=== PATIENT | female | born 1985 | race Caucasian/White ===

== ENCOUNTER 2017-02-16 22:18 | Observation (INO) | payer BC, OTHER ==
[2017-02-16] MEDS ORDERED: Sodium Chloride 0.9% 2.5 ML Syringe FLUSH PRN (23:43)
[2017-02-16] MEDS ORDERED: Sodium Chloride 0.9% 1,000 ML IV ONE (23:43)
[2017-02-16] MEDS ORDERED: Ketorolac 30 MG/ML SDV IVPUSH ONE (23:47)
[2017-02-16] MEDS: Sodium Chloride 0.9% 10 ML Syringe FLUSH PRN (23:53)
--- NOTE | 2017-02-16 23:57 | EDM.PDOC ---
ED HPI GI/ABDOMINAL - General Chief Complaint: Abdominal Pain Stated Complaint: PT HAS STOMACH PAINS Time Seen by Provider: 02/16/17 22:35 Source of Information: Reports: Patient History Limitations: Reports: No limitations - History of Present Illness INITIAL COMMENTS - FREE TEXT/NARRATIVE: HISTORY AND PHYSICAL: History of present illness: [31-year-old female with no prior abdominal history does not believe she is now complaining of upper abdominal pain radiating to her back since about 2 PM] this was feeling fine this morning about 2 hours after eating lunch she had onset of intermittent upper moderate to severe abdominal pain never fully resolved. Crampy sometimes. No fevers chills sweats or shaking chills. Pain is not worse with movement. Patient had no vomiting or diarrhea. No prior diagnoses of any abdominal abnormality. Reports normal bowel and bladder habits Review of systems: As per history of present illness and below otherwise all systems reviewed and negative. Past medical history: As per history of present illness and as reviewed below otherwise noncontributory. Surgical history: As per history of present illness and as reviewed below otherwise noncontributory. Social history: No reported history of drug or alcohol abuse. Family history: As per history of present illness and as reviewed below otherwise noncontributory. Physical exam: HEENT: Atraumatic, normocephalic, pupils reactive, negative for conjunctival pallor or scleral icterus, mucous membranes moist, throat clear, neck supple, nontender, trachea midline. Lungs: Clear to auscultation, breath sounds equal bilaterally, chest nontender. Heart: S1S2, regular, negative for clicks, rubs, or JVD. Abdomen: Soft, nondistended, minimal upper abdominal tenderness bilaterally no guarding or rebound. Negative for masses or hepatosplenomegaly. Negative for costovertebral tenderness. Pelvis: Stable nontender. Genitourinary: Deferred. Rectal: Deferred. Extremities: Atraumatic, negative for cords or calf pain. Neurovascular unremarkable. Neuro: Awake, alert, oriented. Motor and sensory unremarkable throughout. Exam nonfocal. Diagnostics: [] Therapeutics: [] Impression: [] Plan: [Signs and symptoms consistent with nonspecific abdominal pain possibly secondary to gastritis. Pain is vaguely located in the upper abdomen] essentially nonfocal. no lower abdominal tenderness. HCG negative. Labs and urine pending as well as CT of the abdomen and pelvis. Toradol given. CT with cholelithiasis in patient with significantly elevated white blood cell count. Ultrasound ordered for full characterization of gallbladder disease shows pericholecystic fluid and a gallstone the gallbladder neck findings concerning for acute cholecystitis. By post 14.93. She has persistent pain on reexam. Case discussed with Dr. Zhen Jimenez surgery blood donor unit assistant who is aware of history and findings and we'll provide surgical consultation for patient and admit to his service. Definitive disposition and diagnosis as appropriate pending reevaluation and review of above. - Related Data Allergies/ADRs: Allergies Allergy/AdvReac Type Severity Reaction Status Date / Time No Known Allergies Allergy Verified 02/16/17 22:28 Home Meds: Home Meds . [No Known Home Meds] 02/16/17 [History] Past Medical History HEENT History: Reports: None Cardiovascular History: Reports: Hypertension Respiratory History: Reports: None Gastrointestinal History: Reports: None Genitourinary History: Reports: None Musculoskeletal History: Reports: None Neurological History: Reports: None Psychiatric History: Reports: None Endocrine/Metabolic History: Reports: None Oncologic (Cancer) History: Reports: None - Infectious Disease History Infectious Disease History: Reports: None - Past Surgical History Female Surgical History: Reports: None Social & Family History - Family History Family Medical History: Noncontributory - Tobacco Use Smoking Status *Q: Never Smoker - Recreational Drug Use Recreational Drug Use: No ED ROS GENERAL - Review of Systems Review Of Systems: See Below (History of present illness) ED EXAM, GI/ABD - Physical Exam Exam: See Below (History of present illness) Course - Vital Signs Last Recorded V/S: Last Vital Signs Temp 36.9 C 02/17/17 02:56 Pulse 84 02/17/17 02:56 Resp 17 02/17/17 02:56 BP 161/95 H 02/17/17 02:56 Pulse Ox 94 L 02/17/17 02:56 - Orders/Labs/Meds Orders: Active Orders 24 hr Category Date Time Status Peripheral IV Care [RC] . DIRECTED Care 02/16/17 23:44 Active Abdomen Ltd [US] Stat Exams 02/17/17 02:29 Stop Req Abdomen Ltd [US] Stat Exams 02/17/17 02:29 Stop Req Abdomen Pelvis w wo Cont [CT] Stat Exams 02/16/17 23:45 Taken Gallbladder [Abdomen Ltd] [US] Stat Exams 02/17/17 02:39 Taken Sodium Chloride 0.9% [Saline Flush] Med 02/16/17 23:43 Active 10 ml FLUSH ASDIRECTED PRN Sodium Chloride 0.9% [Saline Flush] Med 02/16/17 23:43 Active 2.5 ml FLUSH ASDIRECTED PRN Peripheral IV Insertion Adult [OM.PC] Stat Oth 02/16/17 23:44 Ordered Medication Orders Sodium Chloride (Saline Flush) 10 ml FLUSH ASDIRECTED PRN PRN Reason: Keep Vein Open Last Admin: 02/16/17 23:53 Dose: 10 ml Sodium Chloride (Saline Flush) 2.5 ml FLUSH ASDIRECTED PRN PRN Reason: Keep Vein Open Last Admin: 02/16/17 23:54 Dose: 2.5 ml Labs: Laboratory Tests 02/16/17 02/16/17 02/16/17 Range/Units 22:35 22:35 23:58 WBC 14.93 H (4.0-11.0) K/uL RBC 5.17 (4.30-5.90) M/uL Hgb 14.0 (12.0-16.0) g/dL Hct 43.1 (36.0-46.0) % MCV 83.4 (80.0-98.0) fL MCH 27.1 (27.0-32.0) pg MCHC 32.5 (31.0-37.0) g/dL RDW Std Deviation 41.9 (28.0-62.0) fl RDW Coeff of Stephan 14 (11.0-15.0) % Plt Count 301 (150-400) K/uL MPV 10.40 (7.40-12.00) fL Neut % (Auto) 82.4 H (48.0-80.0) % Lymph % (Auto) 11.7 L (16.0-40.0) % Vernon % (Auto) 4.6 (0.0-15.0) % Eos % (Auto) 1.1 (0.0-7.0) % Baso % (Auto) 0.2 (0.0-1.5) % Neut # (Auto) 12.3 H (1.4-5.7) K/uL Lymph # (Auto) 1.8 (0.6-2.4) K/uL Vernon # (Auto) 0.7 (0.0-0.8) K/uL Eos # (Auto) 0.2 (0.0-0.7) K/uL Baso # (Auto) 0.0 (0.0-0.1) K/uL Nucleated RBC % 0.0 /100WBC Nucleated RBCs # 0 K/uL Sodium (136-146) mmol/L Potassium (3.5-5.1) mmol/L Chloride (98-110) mmol/L Carbon Dioxide (21-31) mmol/L BUN (6.0-23.0) mg/dL Creatinine (0.6-1.5) mg/dL Est Cr Clr Drug Dosing mL/min Estimated GFR (MDRD) ml/min Glucose (60-110) mg/dL Calcium (8.8-10.8) mg/dL Total Bilirubin (0.1-1.5) mg/dL AST (5-40) IU/L ALT (8-54) IU/L Alkaline Phosphatase (40-150) Total Protein (6.0-8.0) g/dL Albumin (3.5-5.0) g/dL Globulin (2.0-3.5) g/dL Albumin/Globulin Ratio (1.3-2.8) Lipase (7-80) U/L Urine Color YELLOW Urine Appearance CLEAR Urine pH 6.0 (5.0-8.0) Ur Specific [place] 1.025 (1.001-1.035) Urine Protein TRACE (NEGATIVE) mg/dL Urine Glucose (UA) NEGATIVE (NEGATIVE) mg/dL Urine Ketones NEGATIVE (NEGATIVE) mg/dL Urine Occult Blood MODERATE (NEGATIVE) Urine Nitrite NEGATIVE (NEGATIVE) Urine Bilirubin NEGATIVE (NEGATIVE) Urine Urobilinogen 0.2 (<2.0) EU/dL Ur Leukocyte Esterase NEGATIVE (NEGATIVE) Urine RBC 0-2 (0-2/HPF) Urine WBC 4-6 (0-5/HPF) Ur Epithelial Cells FEW (NONE-FEW) Urine Bacteria FEW (NEGATIVE) Urine HCG, Qual NEGATIVE (NEGATIVE) 02/16/17 Range/Units 23:58 WBC (4.0-11.0) K/uL RBC (4.30-5.90) M/uL Hgb (12.0-16.0) g/dL Hct (36.0-46.0) % MCV (80.0-98.0) fL MCH (27.0-32.0) pg MCHC (31.0-37.0) g/dL RDW Std Deviation (28.0-62.0) fl RDW Coeff of Stephan (11.0-15.0) % Plt Count (150-400) K/uL MPV (7.40-12.00) fL Neut % (Auto) (48.0-80.0) % Lymph % (Auto) (16.0-40.0) % Vernon % (Auto) (0.0-15.0) % Eos % (Auto) (0.0-7.0) % Baso % (Auto) (0.0-1.5) % Neut # (Auto) (1.4-5.7) K/uL Lymph # (Auto) (0.6-2.4) K/uL Vernon # (Auto) (0.0-0.8) K/uL Eos # (Auto) (0.0-0.7) K/uL Baso # (Auto) (0.0-0.1) K/uL Nucleated RBC % /100WBC Nucleated RBCs # K/uL Sodium 138 (136-146) mmol/L Potassium 3.8 (3.5-5.1) mmol/L Chloride 105 (98-110) mmol/L Carbon Dioxide 21 (21-31) mmol/L BUN 10 (6.0-23.0) mg/dL Creatinine 0.8 (0.6-1.5) mg/dL Est Cr Clr Drug Dosing 82.74 mL/min Estimated GFR (MDRD) > 60.0 ml/min Glucose 109 (60-110) mg/dL Calcium 8.9 (8.8-10.8) mg/dL Total Bilirubin 0.4 (0.1-1.5) mg/dL AST 14 (5-40) IU/L ALT 20 (8-54) IU/L Alkaline Phosphatase 72 (40-150) Total Protein 7.8 (6.0-8.0) g/dL Albumin 4.1 (3.5-5.0) g/dL Globulin 3.7 H (2.0-3.5) g/dL Albumin/Globulin Ratio 1.1 L (1.3-2.8) Lipase 17 (7-80) U/L Urine Color Urine Appearance Urine pH (5.0-8.0) Ur Specific [place] (1.001-1.035) Urine Protein (NEGATIVE) mg/dL Urine Glucose (UA) (NEGATIVE) mg/dL Urine Ketones (NEGATIVE) mg/dL Urine Occult Blood (NEGATIVE) Urine Nitrite (NEGATIVE) Urine Bilirubin (NEGATIVE) Urine Urobilinogen (<2.0) EU/dL Ur Leukocyte Esterase (NEGATIVE) Urine RBC (0-2/HPF) Urine WBC (0-5/HPF) Ur Epithelial Cells (NONE-FEW) Urine Bacteria (NEGATIVE) Urine HCG, Qual (NEGATIVE) Meds: Medications Generic Name Dose Route Start Last Admin Trade Name Freq PRN Reason Stop Dose Admin Sodium Chloride 10 ml 02/16/17 23:43 02/16/17 23:53 Saline Flush FLUSH 10 ml ASDIRECTED PRN Administration Keep Vein Open Sodium Chloride 2.5 ml 02/16/17 23:43 02/16/17 23:54 Saline Flush FLUSH 2.5 ml ASDIRECTED PRN Administration Keep Vein Open Discontinued Medications Generic Name Dose Route Start Last Admin Trade Name Freq PRN Reason Stop Dose Admin Hydromorphone HCl 0.5 mg 02/17/17 04:29 Dilaudid IVPUSH 02/17/17 04:30 ONETIME ONE Sodium Chloride 1,000 mls @ 999 mls/hr 02/16/17 23:43 02/16/17 23:54 Normal Saline IV 02/17/17 00:43 999 mls/hr .Bolus ONE Administration Iopamidol 100 ml 02/17/17 00:46 02/17/17 01:21 Isovue-370 (76%) IVPUSH 02/17/17 00:47 100 ml ONETIME STA Administration Ketorolac Tromethamine 30 mg 02/16/17 23:47 02/16/17 23:54 Toradol IVPUSH 02/16/17 23:48 30 mg ONETIME ONE Administration Departure - Departure Time of Disposition: 04:31 Disposition: Refer to Observation Condition: fair Clinical Impression: Cholecystitis, Cholelithiasis, Leukocytosis, Tachycardia Forms: ED Department Discharge - My Orders Last 24 Hours: My Active Orders 02/16/17 23:43 Sodium Chloride 0.9% [Saline Flush] 10 ml FLUSH ASDIRECTED PRN Sodium Chloride 0.9% [Saline Flush] 2.5 ml FLUSH ASDIRECTED PRN 02/16/17 23:44 Peripheral IV Care [RC] . DIRECTED Peripheral IV Insertion Adult [OM.PC] Stat 02/16/17 23:45 Abdomen Pelvis w wo Cont [CT] Stat 02/17/17 02:29 Abdomen Ltd [US] Stat Abdomen Ltd [US] Stat 02/17/17 02:39 Gallbladder [Abdomen Ltd] [US] Stat - Assessment/Plan Last 24 Hours: My Active Orders 02/16/17 23:43 Sodium Chloride 0.9% [Saline Flush] 10 ml FLUSH ASDIRECTED PRN Sodium Chloride 0.9% [Saline Flush] 2.5 ml FLUSH ASDIRECTED PRN 02/16/17 23:44 Peripheral IV Care [RC] . DIRECTED Peripheral IV Insertion Adult [OM.PC] Stat 02/16/17 23:45 Abdomen Pelvis w wo Cont [CT] Stat 02/17/17 02:29 Abdomen Ltd [US] Stat Abdomen Ltd [US] Stat 02/17/17 02:39 Gallbladder [Abdomen Ltd] [US] Stat
[2017-02-17 00:29] LABS: CHLORIDE,CL 105 mmol/L (98-110); SODIUM,NA 138 mmol/L (136-146)
[2017-02-17] MEDS ORDERED: Iopamidol 755 Mg/ML 100 ML Bottle IVPUSH STA (00:46)
[2017-02-17] MEDS ORDERED: HYDROmorphone 1 MG/ML Syringe IVPUSH ONE (04:29)
[2017-02-17] MEDS: Sodium Chloride 0.9% 10 ML Syringe FLUSH PRN (04:38)
[2017-02-17] MEDS ORDERED: Levofloxacin/Dextrose 5%-Water 750 MG in Premix Bag 1 BAG IV ONE (04:41)
[2017-02-17] MEDS ORDERED: Sodium Chloride 0.9% 1,000 ML IV ONE ×2 (04:41→04:45)
[2017-02-17] MEDS ORDERED: Morphine 2 MG/ML Syringe IVPUSH PRN (08:27)
[2017-02-17] MEDS: Lactated Ringers 1,000 ML IV SCH ×2 (08:31→16:32)
--- NOTE | 2017-02-17 09:38 | PCM.CONS ---
H&P History of Present Illness - General Date of Service: 02/17/17 Admit Problem/Dx: Admission Diagnosis/Problem Admission Diagnosis/Problem Acute cholecystitis Source of Information: Patient History Limitations: Reports: No limitations - History of Present Illness Initial Comments - Free Text/Narative: This 31 year old female with pmh of morbid obesity and borderline HTN presented to the ED today with complaints of abdominal pain. She was admitted under Dr. Wyatt for acute cholecystitis. Dr. Wyatt consulted Hospitalist service for hypertension, She denies any chest pain, SOB or palpitations. She reports she has been told she has elevated BP, but doesn't know the numbers and has never been started on any medications. No history of dyslipidemia or diabetes. epigastric/lower back Pain Score (Numeric/FACES): 2 - Related Data Allergies/Adverse Reactions: Allergies Allergy/AdvReac Type Severity Reaction Status Date / Time No Known Allergies Allergy Verified 02/16/17 22:28 Home Medications: Home Meds . [No Known Home Meds] 02/16/17 [History] Past Medical History HEENT History: Reports: None Cardiovascular History: Reports: Hypertension. Denies: Blood clots/VTE/DVT, Heart Failure, High cholesterol, [place] Respiratory History: Reports: None. Denies: Asthma, COPD, PE Gastrointestinal History: Reports: None. Denies: GERD, GI bleed Genitourinary History: Reports: None. Denies: Acute renal failure, Chronic renal insuffiency Musculoskeletal History: Reports: None Neurological History: Reports: None. Denies: CVA, TIA Psychiatric History: Reports: None. Denies: Anxiety, Depression Endocrine/Metabolic History: Reports: Obesity/BMI 30+. Denies: Diabetes, type II, Hypothyroidism Hematologic History: Reports: None Immunologic History: Reports: None Oncologic (Cancer) History: Reports: None Dermatologic History: Reports: None - Infectious Disease History Infectious Disease History: Reports: None - Past Surgical History Head Surgeries/Procedures: Reports: None Female Surgical History: Reports: None Social & Family History - Family History Family Medical History: Noncontributory - Tobacco Use Smoking Status *Q: Never Smoker Second Hand Smoke Exposure: Yes - Caffeine Use Caffeine Use: Reports: Soda - Recreational Drug Use Recreational Drug Use: No H&P Review of Systems - Review of Systems: Review Of Systems: See Below General: Reports: no symptoms. Denies: fever, chills, malaise HEENT: Reports: no symptoms Pulmonary: Reports: No Symptoms. Denies: Shortness of Breath, Cough, Sputum Cardiovascular: Reports: blood pressure problem. Denies: chest pain, palpitations, edema Gastrointestinal: Reports: Abdominal pain, Distension, Nausea. Denies: Black stool, Bloody stool Genitourinary: Reports: no symptoms. Denies: dysuria, frequency, burning Musculoskeletal: Reports: no symptoms Skin: Reports: no symptoms Psychiatric: Reports: no symptoms Neurological: Reports: No Symptoms Hematologic/Lymphatic: Reports: no symptoms Immunologic: Reports: no symptoms Exam - Exam Exam: See Below - Vital Signs Vital Signs: Last Vital Signs Temp 98.5 F 02/17/17 08:00 Pulse 82 02/17/17 08:00 Resp 16 02/17/17 08:00 BP 172/94 H 02/17/17 08:00 Pulse Ox 94 L 02/17/17 08:00 Weight: 139.7 kg - Exam General: alert, oriented, cooperative HEENT: PERRLA, Hearing intact, Mucosa moist & pink, Nares patent, Normal nasal septum, Posterior pharynx clear, Conjunctiva clear, EOMI, EACs clear, TMs clear Neck: supple, trachea midline, 2 Lungs: Clear to auscultation, Normal respiratory effort Cardiovascular: regular rate, regular rhythm Abdomen: normal bowel sounds, soft, tenderness (RUQ), other (very obese abdomen) Extremities: normal inspection, normal pulses. No: increased warmth Neuro Extensive - Mental Status: alert, oriented x3, normal mood/affect, normal cognition Neuro Extensive - Motor, Sensory, Reflexes: CN II-XII intact, normal gait, normal reflexes Psychiatric: alert, normal affect, normal mood - Patient Data Result Diagrams: 02/16/17 23:58 02/16/17 23:58 Consult PN Assessment/Plan (1) Hypertension SNOMED Code(s): 72392344 Code(s): I10 - ESSENTIAL (PRIMARY) HYPERTENSION Current Visit: Yes (2) Morbid obesity with BMI of 50.0-59.9, adult SNOMED Code(s): 156995049 Code(s): E66.01 - MORBID (SEVERE) OBESITY DUE TO EXCESS CALORIES; Z68.43 - BODY MASS INDEX (BMI) 50-59.9 , ADULT Current Visit: Yes Problem List Initiated/Reviewed/Updated: Yes Plan: This 31 year old female admitted with cholecystitis, Hospitalist service consulted for hypertension 1. Hypertension: asymptomatic, pain well controlled, during interview pain 1-. BP 160-170/90-100. Will start Lisinopril 20 mg and monitor. Will arrange follow up with PCP, Dr. Cedeño for follow up care for HTN. Encouraged her strongly to reduce weight and improve to a healthier lifestyle.
[2017-02-17] MEDS ORDERED: Lisinopril 10 MG Tab PO SCH (10:00)
--- NOTE | 2017-02-17 10:35 | CT ---
EXAM DATE: 02/17/17 PATIENT'S AGE: 31 Patient: ELVER ERVIN Facility: [place], [place] Site . Site : 1985 Study: CT Abdomen/Pelvis W/ and W/O Cont [id number]/6/[id number] 1:35:53 AM Ordering Physician: Doctor Ford Final Report: INDICATION: Right upper quadrant pain and squeezing sensation, back pain TECHNIQUE: CT abdomen and pelvis acquired without and with IV contrast. COMPARISON: None FINDINGS: Lower chest: 0.5 centimeter subpleural nodule right lower lobe. Liver: Unremarkable. Spleen: Unremarkable. Pancreas: Unremarkable. Gallbladder and bile ducts: Cholelithiasis. Adrenal glands: Unremarkable. Kidneys: Unremarkable. GI tract: Unremarkable. Vascular structures: Unremarkable. Lymph nodes: Unremarkable. Miscellaneous: Unremarkable. No free air or significant free fluid. Pelvic Organs: Unremarkable. Bones: Unremarkable for age. IMPRESSION: 1. Cholelithiasis. Right upper quadrant ultrasound may be useful for further evaluation if clinically indicated. 2. Right lower lobe pulmonary nodule. This is likely postinflammatory in a patient of this age. Comparison with any prior CT would be useful. Consider a followup chest CT scan 6 months to evaluate for any interval change. Dictated by Flavia Kumar MD @ Feb 17 2017 1:45AM (Electronic Signature) Report Signed by Proxy and Original Signed Document filed in the Medical Record. [facility]
--- NOTE | 2017-02-17 10:36 | US ---
EXAM DATE: 02/17/17 PATIENT'S AGE: 31 Patient: ELVER ERVIN Facility: [place], [place] Site . Site : 1985 Study: US Abdomen [id number]/6/2017 3:44:06 AM Ordering Physician: Chris Aquino Final Report: INDICATION: Right upper quadrant pain, leukocytosis TECHNIQUE: Ultrasound abdomen limited. Sonographic images of the right upper quadrant were obtained using bynum-scale and color Doppler images. COMPARISON: CT abdomen pelvis February 17, 2017 FINDINGS: Liver: Normal in size and echotexture. No masses. No intrahepatic biliary dilatation. Gallbladder: Sonographic Yuan sign is positive. There appears to be an immobile gallstone within the gallbladder neck. There is gallbladder sludge. Small amount of pericholecystic fluid. Common bile duct: 3 mm. Pancreas: Normal. Right kidney: 11.6 x 4.8 by 5.8 cm. Normal echotexture and cortex. No masses, stones, or hydronephrosis. Vasculature: Proximal abdominal aorta and IVC are normal. IMPRESSION: Findings are concerning for acute cholecystitis with a mobile gallstone within the gallbladder neck and pericholecystic fluid. Dictated by Flavia Kumar MD @ Feb 17 2017 4:06AM (Electronic Signature) Report Signed by Proxy and Original Signed Document filed in the Medical Record. [facility]
--- NOTE | 2017-02-17 13:37 | HP ---
DATE OF : 1985 PRIMARY CARE PHYSICIAN: Roland PCP ADMISSION DIAGNOSIS: Acute and chronic cholecystitis. HISTORY OF PRESENT ILLNESS: The patient is a morbidly obese, 31-year-old lady and complained over a 24-hour history of acute onset of epigastric pain and radiated to the back and looks like somebody has stabbed her from the back to the front. Denied jaundice, denied dark urine, denied white stool, and admission workup included blood work and ultrasound and abdominal CT. Official report is not available at the time of dictation. There is pericholecystic fluid and gallstones and with elevated white count of 14.5. The patient was admitted for further management. The patient remarked that she is known to have gallstones for about 4 to 5 years, and 4 years ago, similar thing happened, and she was treated symptomatically. During the years, on and off, she has some pain, but this time, it is getting worse. PAST MEDICAL HISTORY: Significant for no diabetic, [place], CVA. The patient is known to have hypertension. PAST SURGICAL HISTORY: None. ALLERGIES: Please refer to nursing note for details. MEDICATION: Please refer to nursing note for details. FAMILY HISTORY: Noncontributory. REVIEW OF SYSTEMS: Same as history of present illness. PHYSICAL EXAMINATION: GENERAL: A very pleasant, nice, young lady, younger than stated age, in no acute distress. Very poor dentition, many losing teeth. HEENT: Normocephalic and atraumatic. Sclerae anicteric. LUNGS: Clear to auscultation. HEART: Regular rate and rhythm. ABDOMEN: Protruding, obese, nontender, absolutely no pain. No rebound, no surgical scar, no hernia. VITAL SIGN: Blood pressure 215/120 on admission. The patient's BMI is 54, weight 290, 5 feet tall, and makes a BMI of 54. LABORATORY DATA: Ultrasound and CAT scan as the report dictated above. Total bilirubin is 0.5. ALT and AST and amylase and lipase are within normal limits. IMPRESSION: Chronic and acute cholecystitis. The patient denied jaundice, dark urine, or white stool. An ultrasound of common bile duct about 3 mm. No signs or symptoms of the common bile duct stone at the time of dictation, and pain has completely resolved, and the patient's BMI of 54 is prohibitory to have laparoscopic surgery in this hospital, which simply do not have the equipment. Situation has been explained to the patient. The patient understands, and we will continue to treat with antibiotic and cool down the gallbladder, and it looks like the patient responds well to medical treatment, and the patient will then need to seek medical attention at a tertiary care center, where they are probably more equipped to handle the patient's body habitus, and without equipment, and if the patient needs laparoscopic surgery, we may have to convert to open, and that is not to the best interest of the patient. We will continue to treat with antibiotic and follow serial abdominal exam as well as laboratory workup. Thank you for your kind referral. CADEN IVY /[id number]
[2017-02-17 16:58] VITALS: BP 126/73
[2017-02-18] MEDS ORDERED: Levofloxacin/Dextrose 5%-Water 750 MG in Premix Bag 1 BAG IV SCH (05:00)
[2017-02-18] MEDS ORDERED: Levofloxacin 500 MG Tab PO SCH (05:00)
== END 2017-02-17 19:00 | disposition home or self-care (01) ==
LOC: MW.ED 22:18 → MW.MS 02-17 04:33
PROVIDERS: ADMIT Surgery; ATTEND Surgery
DX: K81.2 Acute cholecystitis with chronic cholecystitis (principal); I10 Essential (primary) hypertension; E66.01 Morbid (severe) obesity due to excess calories; Z68.43 Body mass index [BMI] 50.0-59.9, adult
CPT/HCPCS: 36415; 74178; 76705; 80053; 81001; 81025; 83690; 85025; 96361; 96374; 96375; 99285; A9270; G0378; J1170; J1885; J1956; J7040; J7120; Q9967; 99284

== ENCOUNTER → 2017-02-22 | Outpatient (CLI) | payer BC | LOC: MW.CHFP 10:35 | PROVIDERS: ATTEND Emergency Medicine | DX: I10 Essential (primary) hypertension (principal); E66.01 Morbid (severe) obesity due to excess calories; Z68.43 Body mass index [BMI] 50.0-59.9, adult | CPT/HCPCS: 36415; 83036; 84443 ==

== ENCOUNTER 2024-02-19 16:29 | Emergency (ER) | payer BC ==
[2024-02-19] MEDS: Sodium Chloride 0.9% 2.5 ML Syringe FLUSH PRN (17:41)
[2024-02-19] MEDS: Sodium Chloride 0.9% 10 ML Syringe FLUSH PRN (17:41)
[2024-02-19] MEDS: Ketorolac 30 MG/ML SDV IVPUSH STA (17:41)
[2024-02-19 18:10] LABS: BASOPHILS ABSOLUTE AUTO 0.06 K/uL (0.00-0.20); BASOPHILS PERCENT AUTO 0.7 % (0.0-1.0); EOSINOPHILS ABSOLUTE AUTO 0.28 K/uL (0.00-0.45); EOSINOPHILS PERCENT AUTO 3.1 % (0.0-6.0); HEMOGLOBIN 14.9 g/dL (12.0-16.0); IMMATURE GRAN ABSOLUTE AUTO 0.03 K/uL (0.00-0.05); IMMATURE GRAN PERCENT AUTO 0.3 % (0.0-0.4); LYMPHOCYTES ABSOLUTE AUTO 2.12 K/uL (1.00-4.80); LYMPHOCYTES PERCENT AUTO 23.7 % (24.0-44.0); MEAN CORPUSCULAR HEMOGLOBIN 27.8 pg (28.0-32.0); MEAN CORPUSCULAR HGB CONC 32.4 g/dL (32.0-36.0); MEAN CORPUSCULAR VOLUME 85.8 fL (83.0-99.0); MEAN PLATELET VOLUME 10.6 fL (9.4-12.3); MONOCYTES ABSOLUTE AUTO 0.48 K/uL (0.00-0.80); MONOCYTES PERCENT AUTO 5.4 % (0.0-8.0); NEUTROPHILS ABSOLUTE AUTO 5.96 K/uL (1.80-7.70); NEUTROPHILS PERCENT AUTO 66.8 % (41.0-71.0); PLATELET COUNT,PLT 265 K/uL (150-400); RED BLOOD CELL COUNT 5.36 M/uL (4.10-5.30); WHITE BLOOD CELL COUNT,WBC 8.93 K/uL (3.9-11.3)
[2024-02-19 18:25] LABS: INR 1.03 (0.86-1.11); PTT,PARTIAL THROMBOPLSTIN TIME 28.2 SEC (23.9-30.7)
[2024-02-19 18:43] LABS: A/G RATIO 0.9 (0.9-1.6); ALBUMIN 3.7 g/dL (3.4-5.0); BILIRUBIN TOTAL 0.4 mg/dL (0.2-1.0); CALCIUM 9.5 mg/dL (8.5-10.1); CARBON DIOXIDE,CO2 27.9 mmol/L (21.0-32.0); CREATININE 0.8 mg/dL (0.6-1.0); EST CRCL DRUG DOSING (CG) 70.54 mL/min; POTASSIUM,K 4.8 mmol/L (3.5-5.1)
[2024-02-19 20:11] VITALS: BP 201/107; PULSE 70
== END 2024-02-19 20:10 | disposition home or self-care (01) ==
LOC: MW.ED 16:29
DX: M54.6 Pain in thoracic spine (principal); M25.511 Pain in right shoulder; I10 Essential (primary) hypertension; E66.9 Obesity, unspecified; Z75.8 Other problems related to medical facilities and other health care; Z88.0 Allergy status to penicillin; Z68.43 Body mass index [BMI] 50.0-59.9, adult
CPT/HCPCS: 36415; 71046; 80053; 83690; 84484; 84703; 85025; 85610; 85730; 93005; 96374; 99284; J1885; J3490; 93010

== ENCOUNTER 2025-08-02 19:07 | Inpatient (IN) | payer BC ==
[2025-08-02 19:45] LABS: BASOPHILS ABSOLUTE AUTO 0.07 K/uL (0.00-0.20); BASOPHILS PERCENT AUTO 0.5 % (0.0-1.0); EOSINOPHILS ABSOLUTE AUTO 0.10 K/uL (0.00-0.45); EOSINOPHILS PERCENT AUTO 0.7 % (0.0-6.0); IMMATURE GRAN ABSOLUTE AUTO 0.04 K/uL (0.00-0.05); IMMATURE GRAN PERCENT AUTO 0.3 % (0.0-0.4); LYMPHOCYTES ABSOLUTE AUTO 2.51 K/uL (1.00-4.80); LYMPHOCYTES PERCENT AUTO 17.7 % (24.0-44.0); MEAN PLATELET VOLUME 11.5 fL (9.4-12.3); MONOCYTES ABSOLUTE AUTO 0.71 K/uL (0.00-0.80); MONOCYTES PERCENT AUTO 5.0 % (0.0-8.0); NEUTROPHILS ABSOLUTE AUTO 10.73 K/uL (1.80-7.70); NEUTROPHILS PERCENT AUTO 75.8 % (41.0-71.0); NRBC ABSOLUTE 0.00 K/uL (0.00-0.02); NRBC PERCENT 0.0 /100WBC (0.0-0.2); PLATELET COUNT,PLT 302 K/uL (150-400); RED BLOOD CELL COUNT 5.41 M/uL (4.10-5.30); WHITE BLOOD CELL COUNT,WBC 14.16 K/uL (3.9-11.3)
[2025-08-02 19:54] LABS: APPEARANCE,URINE CLEAR; GLUCOSE,URINE >=1000 mg/dL (NEGATIVE); OCCULT BLOOD,URINE TRACE-INTACT (NEGATIVE)
[2025-08-02 19:59] LABS: A/G RATIO 0.9 (0.9-1.6); ALANINE AMINOTRANSFERASE,ALT 56.0 IU/L (14-63); ASPARTATE AMNIOTRANSFERASE,AST 23.0 IU/L (15-37); BILIRUBIN TOTAL 0.9 mg/dL (0.2-1.0); BLOOD UREA NITROGEN,BUN 34.0 mg/dL (7.0-18.0); CARBON DIOXIDE,CO2 21.6 mmol/L (21.0-32.0); CHLORIDE,CL 81.0 mmol/L (98-107); CREATININE 1.6 mg/dL (0.6-1.0); EST CRCL DRUG DOSING (CG) 34.56 mL/min; POTASSIUM,K 3.9 mmol/L (3.5-5.1); PROTEIN TOTAL,TP 8.2 g/dL (6.4-8.2)
[2025-08-02 20:05] LABS: ESTIMATED GFR 41.0 mL/min (>60); GLUCOSE RANDOM 739.0 mg/dL (74-106); SODIUM,NA 120.0 mmol/L (136-145)
[2025-08-02 20:10] LABS: EPITHELIAL CELLS,URINE RARE (NONE-FEW)
[2025-08-02 20:25] LABS: BASE EXCESS VENOUS 1.0 (-2.0-3.0); BICARBONATE,VENOUS 25.0 mEq/L (22-29); PCO2 VENOUS 38.0 mmHG (41-51); PH,VENOUS 7.43 (7.32-7.43); PO2 VENOUS 78.0 mmHG (35-45)
[2025-08-02] MEDS: Sodium Chloride 0.9% 10 ML Syringe FLUSH PRN (20:27)
[2025-08-02] MEDS: Sodium Chloride 0.9% 2.5 ML Syringe FLUSH PRN (20:27)
[2025-08-02] MEDS: Magnesium Sulfate 2 GM/50 mL 2 GM in Premix Bag 1 BAG IV ONE (21:38)
[2025-08-02] MEDS: Ondansetron 4 MG/2 ML SDV IVPUSH ONE (22:08)
[2025-08-02] MEDS: cefTRIAXone 2 GM in Water For Injection, Sterile 20 ML IVPUSH ONE (23:54)
[2025-08-03] MEDS ORDERED: 50% Dextrose in Water 50 ML Syringe IVPUSH PRN ×3 (00:16→14:53)
[2025-08-03] MEDS ORDERED: Ondansetron 4 MG/2 ML SDV IVPUSH PRN (00:50)
[2025-08-03 06:19] LABS: BASOPHILS ABSOLUTE AUTO 0.05 K/uL (0.00-0.20); BASOPHILS PERCENT AUTO 0.5 % (0.0-1.0); EOSINOPHILS ABSOLUTE AUTO 0.26 K/uL (0.00-0.45); EOSINOPHILS PERCENT AUTO 2.6 % (0.0-6.0); IMMATURE GRAN ABSOLUTE AUTO 0.03 K/uL (0.00-0.05); IMMATURE GRAN PERCENT AUTO 0.3 % (0.0-0.4); LYMPHOCYTES ABSOLUTE AUTO 2.86 K/uL (1.00-4.80); LYMPHOCYTES PERCENT AUTO 28.8 % (24.0-44.0); MEAN PLATELET VOLUME 11.2 fL (9.4-12.3); MONOCYTES ABSOLUTE AUTO 0.60 K/uL (0.00-0.80); MONOCYTES PERCENT AUTO 6.0 % (0.0-8.0); NEUTROPHILS ABSOLUTE AUTO 6.13 K/uL (1.80-7.70); NEUTROPHILS PERCENT AUTO 61.8 % (41.0-71.0); NRBC ABSOLUTE 0.00 K/uL (0.00-0.02); NRBC PERCENT 0.0 /100WBC (0.0-0.2); PLATELET COUNT,PLT 260 K/uL (150-400); RED BLOOD CELL COUNT 4.83 M/uL (4.10-5.30); WHITE BLOOD CELL COUNT,WBC 9.93 K/uL (3.9-11.3)
[2025-08-03 06:42] LABS: A/G RATIO 0.8 (0.9-1.6); ALANINE AMINOTRANSFERASE,ALT 43.0 IU/L (14-63); ASPARTATE AMNIOTRANSFERASE,AST 26.0 IU/L (15-37); BILIRUBIN TOTAL 0.5 mg/dL (0.2-1.0); BLOOD UREA NITROGEN,BUN 23.0 mg/dL (7.0-18.0); CARBON DIOXIDE,CO2 26.7 mmol/L (21.0-32.0); CHLORIDE,CL 94.0 mmol/L (98-107); CREATININE 1.0 mg/dL (0.6-1.0); EST CRCL DRUG DOSING (CG) 55.3 mL/min; GLUCOSE RANDOM 291.0 mg/dL (74-106); POTASSIUM,K 3.0 mmol/L (3.5-5.1); PROTEIN TOTAL,TP 6.8 g/dL (6.4-8.2); SODIUM,NA 130.0 mmol/L (136-145)
[2025-08-03 06:48] LABS: ESTIMATED GFR 72.0 mL/min (>60)
[2025-08-03] MEDS: Benzocaine/Cetylpyridinium/Menthol Lozenge MUCMEM PRN (08:37)
[2025-08-03] MEDS: Potassium Chloride 20 MEQ Tab.ER PO ONE ×2 (11:01→14:31)
[2025-08-03] MEDS: Lisinopril/Hydrochlorothiazide 10-12.5 MG Tab PO SCH (11:01)
[2025-08-03] MEDS: Insulin Glargine,Human Rec. Analog 100 Units/ML 3 ML Pen SUBCUT SCH (11:02)
[2025-08-03] MEDS: Acetaminophen/HYDROcodone 325-5 MG Tab PO PRN (11:55)
[2025-08-03 12:37] LABS: BLOOD UREA NITROGEN,BUN 21.0 mg/dL (7.0-18.0); CARBON DIOXIDE,CO2 25.7 mmol/L (21.0-32.0); CHLORIDE,CL 94.0 mmol/L (98-107); CREATININE 1.0 mg/dL (0.6-1.0); EST CRCL DRUG DOSING (CG) 55.3 mL/min; GLUCOSE RANDOM 390.0 mg/dL (74-106); POTASSIUM,K 3.2 mmol/L (3.5-5.1); SODIUM,NA 130.0 mmol/L (136-145)
[2025-08-03 12:49] LABS: ESTIMATED GFR 72.0 mL/min (>60)
[2025-08-03 19:00] LABS: BLOOD UREA NITROGEN,BUN 20.0 mg/dL (7.0-18.0); CARBON DIOXIDE,CO2 26.3 mmol/L (21.0-32.0); CHLORIDE,CL 95.0 mmol/L (98-107); CREATININE 1.0 mg/dL (0.6-1.0); EST CRCL DRUG DOSING (CG) 55.3 mL/min; GLUCOSE RANDOM 385.0 mg/dL (74-106); POTASSIUM,K 3.8 mmol/L (3.5-5.1); SODIUM,NA 129.0 mmol/L (136-145)
[2025-08-03 19:01] LABS: ESTIMATED GFR 72.0 mL/min (>60)
[2025-08-03] MEDS: cefTRIAXone 2 GM in Water For Injection, Sterile 20 ML IVPUSH SCH (21:25)
[2025-08-04 05:57] LABS: BASOPHILS ABSOLUTE AUTO 0.05 K/uL (0.00-0.20); BASOPHILS PERCENT AUTO 0.6 % (0.0-1.0); EOSINOPHILS ABSOLUTE AUTO 0.31 K/uL (0.00-0.45); EOSINOPHILS PERCENT AUTO 3.6 % (0.0-6.0); IMMATURE GRAN ABSOLUTE AUTO 0.03 K/uL (0.00-0.05); IMMATURE GRAN PERCENT AUTO 0.3 % (0.0-0.4); LYMPHOCYTES ABSOLUTE AUTO 2.74 K/uL (1.00-4.80); LYMPHOCYTES PERCENT AUTO 31.6 % (24.0-44.0); MEAN PLATELET VOLUME 11.6 fL (9.4-12.3); MONOCYTES ABSOLUTE AUTO 0.61 K/uL (0.00-0.80); MONOCYTES PERCENT AUTO 7.0 % (0.0-8.0); NEUTROPHILS ABSOLUTE AUTO 4.93 K/uL (1.80-7.70); NEUTROPHILS PERCENT AUTO 56.9 % (41.0-71.0); NRBC ABSOLUTE 0.00 K/uL (0.00-0.02); NRBC PERCENT 0.0 /100WBC (0.0-0.2); PLATELET COUNT,PLT 233 K/uL (150-400); RED BLOOD CELL COUNT 4.79 M/uL (4.10-5.30); WHITE BLOOD CELL COUNT,WBC 8.67 K/uL (3.9-11.3)
[2025-08-04 06:44] LABS: A/G RATIO 0.8 (0.9-1.6); ALANINE AMINOTRANSFERASE,ALT 46.0 IU/L (14-63); ASPARTATE AMNIOTRANSFERASE,AST 20.0 IU/L (15-37); BILIRUBIN TOTAL 0.3 mg/dL (0.2-1.0); BLOOD UREA NITROGEN,BUN 13.0 mg/dL (7.0-18.0); CARBON DIOXIDE,CO2 24.3 mmol/L (21.0-32.0); CHLORIDE,CL 99.0 mmol/L (98-107); CREATININE 0.7 mg/dL (0.6-1.0); EST CRCL DRUG DOSING (CG) 79.0 mL/min; GLUCOSE RANDOM 214.0 mg/dL (74-106); POTASSIUM,K 3.1 mmol/L (3.5-5.1); PROTEIN TOTAL,TP 6.3 g/dL (6.4-8.2); SODIUM,NA 136.0 mmol/L (136-145)
[2025-08-04 07:05] LABS: ESTIMATED GFR 111.0 mL/min (>60)
[2025-08-04] MEDS: Potassium Chloride 20 MEQ Tab.ER PO ONE (09:57)
[2025-08-04] MEDS: Magnesium Sulfate 2 GM/50 mL 2 GM in Premix Bag 1 BAG IV ONE (09:58)
[2025-08-04 10:57] LABS: CHOLESTEROL HDL 35 mg/dL (40-60); CHOLESTEROL TOTAL 235 mg/dL (50-200)
[2025-08-04] MEDS: Acetaminophen/HYDROcodone 325-5 MG Tab PO PRN (15:55)
[2025-08-05 06:20] LABS: BASOPHILS ABSOLUTE AUTO 0.07 K/uL (0.00-0.20); BASOPHILS PERCENT AUTO 0.8 % (0.0-1.0); EOSINOPHILS ABSOLUTE AUTO 0.29 K/uL (0.00-0.45); EOSINOPHILS PERCENT AUTO 3.2 % (0.0-6.0); IMMATURE GRAN ABSOLUTE AUTO 0.04 K/uL (0.00-0.05); IMMATURE GRAN PERCENT AUTO 0.4 % (0.0-0.4); LYMPHOCYTES ABSOLUTE AUTO 2.68 K/uL (1.00-4.80); LYMPHOCYTES PERCENT AUTO 29.3 % (24.0-44.0); MEAN PLATELET VOLUME 11.7 fL (9.4-12.3); MONOCYTES ABSOLUTE AUTO 0.63 K/uL (0.00-0.80); MONOCYTES PERCENT AUTO 6.9 % (0.0-8.0); NEUTROPHILS ABSOLUTE AUTO 5.45 K/uL (1.80-7.70); NEUTROPHILS PERCENT AUTO 59.4 % (41.0-71.0); NRBC ABSOLUTE 0.00 K/uL (0.00-0.02); NRBC PERCENT 0.0 /100WBC (0.0-0.2); PLATELET COUNT,PLT 236 K/uL (150-400); RED BLOOD CELL COUNT 4.98 M/uL (4.10-5.30); WHITE BLOOD CELL COUNT,WBC 9.16 K/uL (3.9-11.3)
[2025-08-05 06:45] LABS: A/G RATIO 0.8 (0.9-1.6); ALANINE AMINOTRANSFERASE,ALT 54.0 IU/L (14-63); ASPARTATE AMNIOTRANSFERASE,AST 39.0 IU/L (15-37); BILIRUBIN TOTAL 0.4 mg/dL (0.2-1.0); BLOOD UREA NITROGEN,BUN 13.0 mg/dL (7.0-18.0); CARBON DIOXIDE,CO2 27.5 mmol/L (21.0-32.0); CHLORIDE,CL 102.0 mmol/L (98-107); CREATININE 0.8 mg/dL (0.6-1.0); EST CRCL DRUG DOSING (CG) 69.13 mL/min; GLUCOSE RANDOM 168.0 mg/dL (74-106); POTASSIUM,K 3.2 mmol/L (3.5-5.1); PROTEIN TOTAL,TP 6.4 g/dL (6.4-8.2); SODIUM,NA 137.0 mmol/L (136-145)
[2025-08-05 06:51] LABS: ESTIMATED GFR 94.0 mL/min (>60)
[2025-08-05] MEDS: Acetaminophen/HYDROcodone 325-5 MG Tab PO PRN (07:57)
[2025-08-05 08:12] LABS: PHOSPHORUS 3.5 mg/dL (2.6-4.7)
[2025-08-05] MEDS: Potassium Chloride 20 MEQ Tab.ER PO SCH (08:55)
[2025-08-05] MEDS: Magnesium Sulfate 4 GM/100 mL 4 GM in Premix Bag 1 BAG IV ONE (08:56)
[2025-08-05] MEDS ORDERED: Insulin Glargine,Human Rec. Analog 100 Units/ML 3 ML Pen SUBCUT SCH (09:00)
[2025-08-05] MEDS: Insulin Glargine,Human Rec. Analog 100 Units/ML 3 ML Pen SUBCUT SCH (09:48)
[2025-08-05 11:30] VITALS: BP 107/61; PULSE 79
[2025-08-05] MEDS: Potassium Chloride 20 MEQ Tab.ER PO ONE (12:03)
== END 2025-08-05 12:07 | disposition home or self-care (01) | DRG 469 ==
LOC: MW.ED 19:07 → MW.MS 23:54
PROVIDERS: ADMIT Family Medicine; ATTEND Family Medicine
DX: N17.9 Acute kidney failure, unspecified (principal); N10 Acute pyelonephritis; E11.65 Type 2 diabetes mellitus with hyperglycemia; I10 Essential (primary) hypertension; E86.0 Dehydration; K76.0 Fatty (change of) liver, not elsewhere classified; E03.9 Hypothyroidism, unspecified; E66.01 Morbid (severe) obesity due to excess calories; D72.829 Elevated white blood cell count, unspecified; E87.20 Acidosis, unspecified; Z88.0 Allergy status to penicillin; Z68.43 Body mass index [BMI] 50.0-59.9, adult; Z79.899 Other long term (current) drug therapy
CPT/HCPCS: 36415; 74176; 74176-26; 80048; 80053; 80061; 81001; 81025; 82803; 82947; 83036; 83690; 83735; 84100; 84478; 85025; 87086; 96361; 96365; 96366; 96375; 99284; 99285-25; A4216; A9270-GY; J0696; J1650; J1815-GY; J2405; J3475; J7030